=== PATIENT | female | born 1995 | race American Indian/Alaskan Native ===

== ENCOUNTER 2018-03-12 01:29 | Emergency (ER) | payer SELFPAY ==
--- NOTE | 2018-03-12 05:04 | Emergency Department Report ---
ED Recheck HPI - General Chief Complaint: Urogenital-Female Stated Complaint: ABD PAIN Time Seen by Provider: 03/12/18 04:18 Source: patient Mode of arrival: Ambulatory Limitations: No Limitations - History of Present Illness Initial Comments: Patient here reports that she went to [facility] and they diagnosed about a week ago and she said she had vaginal discharge and came in contact with STD and was treated for gonorrhea and chlamydia and he gave her a shot and gave her 2 prescription to treat bacterial vaginosis and Chlamydia but she said that she did not know where the prescriptions are. She is here to get prescriptions. She denies any abdominal pain she reports that she is having vaginal discharge that is white. No itching. She said she did not get treated for chlamydia because she did not fill the prescription and she is here to get a prescription. She has a history of asthma. She denies any abdominal pain or vaginal bleeding. She denies any back pain. Denies any urinary burning, frequency or urgency. Denies any nausea or vomiting. MD Complaint: medication refill request Onset/Timin -: week(s) Initial Visit For: other (she was at [facility] and treated for gonorrhea and given prescription to be filled for Chlamydia and bacterial vaginosis) Returns Today for: request for prescription Symptoms Since Prior Visit: no new symptoms Context: other (loss prescription) Associated Symptoms: denies: fever, chills, chest pain, shortness of breath, rash, malaise, nasuea, abdominal pain Treatments Prior to Arrival: Given Antibiotics on - Related Data Previous Rx's Medication Instructions Recorded Last Taken Type metroNIDAZOLE [Flagyl] 500 mg PO Q12HR 7 Days #14 tab 03/12/18 Unknown Rx Allergies Allergy/AdvReac Type Severity Reaction Status Date / Time No Known Allergies Allergy Unverified 03/12/18 02:42 ED Review of Systems ROS: Stated complaint: ABD PAIN Other details as noted in HPI Constitutional: denies: fever ENT: denies: throat pain Respiratory: denies: cough, shortness of breath, wheezing Cardiovascular: denies: chest pain, palpitations, edema, syncope Gastrointestinal: denies: abdominal pain, nausea, vomiting, constipation Genitourinary: discharge. denies: urgency, dysuria, hematuria Musculoskeletal: denies: back pain Skin: denies: rash Neurological: denies: headache ED Past Medical Hx - Past Medical History Previous Medical History?: Yes Hx Asthma: Yes - Surgical History Past Surgical History?: No - Social History Smoking Status: Current Every Day Smoker Substance Use Type: Alcohol - Medications Home Medications: Home Medications Medication Instructions Recorded Confirmed Last Taken Type metroNIDAZOLE [Flagyl] 500 mg PO Q12HR 7 Days #14 tab 03/12/18 Unknown Rx ED Physical Exam - General Limitations: No Limitations General appearance: alert, in no apparent distress - Head Head exam: Present: atraumatic, normocephalic, normal inspection - Eye Eye exam: Present: normal appearance - ENT ENT exam: Present: normal exam, normal orophraynx, mucous membranes moist - Respiratory Respiratory exam: Present: normal lung sounds bilaterally. Absent: respiratory distress, chest wall tenderness - Cardiovascular Cardiovascular Exam: Present: normal rhythm, tachycardia, normal heart sounds - GI/Abdominal GI/Abdominal exam: Present: soft, normal bowel sounds. Absent: tenderness, rigid - Extremities Exam Extremities exam: Present: normal inspection, full ROM, other - Back Exam Back exam: Present: normal inspection, full ROM, other (ambulates without any difficulties). Absent: CVA tenderness (R), CVA tenderness (L) - Neurological Exam Neurological exam: Present: alert, oriented X3, normal gait - Psychiatric Psychiatric exam: Present: normal affect, normal mood - Skin Skin exam: Present: warm, dry, intact, normal color. Absent: rash ED Course Vital Signs 03/12/18 03/12/18 03/12/18 01:39 05:30 05:32 Temperature 98.8 F Pulse Rate 102 H 82 Respiratory 16 18 Rate Blood Pressure 136/89 138/85 O2 Sat by Pulse 100 100 99 Oximetry - Reevaluation(s) Reevaluation #1: 03/12/18 05:42 given 1 g of a fist and azithromycin to treat chlamydia in emergency room with no adverse reaction. She will be discharged home with Flagyl prescription ED Recheck MDM - Medical Decision Making This is a 22-year-old female here report that she has Chlamydia and was given prescription and she was also given prescription for bacterial vaginosis but she lost the prescription in. She said that she was treated for gonorrhea at [facility] with penicillin shot and they gave her prescription to be filled at pharmacy for chlamydia and bacterial vaginosis but she lost that and she is having vaginal discharge. She denies that she is sexually active at present. I discussed the patient that medication was given and emergency room tonight which is a Zithromax 1 g will treat Chlamydia and she is to refrain from having sex for at least 2 weeks. I also discussed with her that I will give her medication to treat bacterial vaginosis and she needs to refrain from drinking all call and she voiced understanding. Patient vital signs stable and she is afebrile and discharged home in stable condition with prescription for Flagyl and to follow-up at health department in 7-10 days for recheck. Critical care attestation.: If time is entered above; I have spent that time in minutes in the direct care of this critically ill patient, excluding procedure time. ED Disposition Clinical Impression: Encounter for medication refill, Vaginal discharge, Sexually transmitted disease (STD) Disposition: TO HOME OR SELFCARE Is pt being admited?: No Does the pt Need Aspirin: No Condition: Stable Instructions: Safe Sex (ED), Sexually Transmitted Diseases (ED), Bacterial Vaginosis (ED) Additional Instructions: Please follow up with health department in 7-10 days for recheck for STD. Please do not have sex within the next 2 weeks and please let you partner know that you were treated for STD in emergency room. Take medications for bacterial vaginosis but please do not drink alcohol with this medication as it can cause nausea and vomiting and stomach irritation. Practice safe sex. Referrals: [facility] [Outside] - 7-10 days Forms: Work/School Release Form(ED)
[2018-03-12] MEDS ORDERED: ZITHROMAX PO ONE (05:08)
[2018-03-12 05:32] VITALS: BP 138/85
== END 2018-03-12 05:57 | disposition home or self-care (01) ==
LOC: EDSEX → ED 01:29
DX: N89.8 Other specified noninflammatory disorders of vagina (principal); F17.200 Nicotine dependence, unspecified, uncomplicated; J45.909 Unspecified asthma, uncomplicated; Z76.0 Encounter for issue of repeat prescription; Z20.2 Contact with and (suspected) exposure to infections with a predominantly sexual mode of transmission
CPT/HCPCS: 99283